=== PATIENT | male | born 1970 | race Caucasian/White ===

== ENCOUNTER 2021-07-26 07:07 | Day surgery (SDC) | payer BC ==
[2021-07-22 16:14] VITALS: BMI 21.9
[~2021-07-26 07:07] MED LIST: ACETAMINOPHEN TAB 500 MG TAB PO PRN; HEPARIN SODIUM,PORCINE/PF 5,000 UNIT/0.5 ML SYRINGE SQ PRN; Pre Op ABX Message 1 EACH MISC MISCELLANE ONE
[2021-07-26] MEDS ORDERED: ONDANSETRON 4 MG/2 ML VIAL IVP ONE (07:36)
[2021-07-26] MEDS ORDERED: DEXAMETHASONE SOD PHOSPHATE 4 MG/ML 1 ML VIAL IV ONE (07:36)
[2021-07-26] MEDS ORDERED: MIDAZOLAM 2 MG/2 ML VIAL IV PRN (07:36)
[2021-07-26] MEDS ORDERED: SCOPOLAMINE 1.5MG/72HR PATCH TRANSDERM ONE (07:36)
[2021-07-26] MEDS ORDERED: HYDROmorphone 0.5 MG/0.5 ML SYRINGE IVP PRN (07:36)
[2021-07-26 07:52] VITALS: TEMP 97.3
[2021-07-26] MEDS: LACTATED RINGERS 1,000 ML IV SCH ×2 (08:15→09:17)
[2021-07-26 08:16] LABS: Glucose,Whole Blood 105 mg/dL (75-99)
--- NOTE | 2021-07-26 08:55 | P.GSHP ---
History of Present Illness H&P Date: 07/26/21 Chief Complaint: Right hip lipoma Is a 49-year-old male who has developed a right hip lipoma. Patient presents today for excision. Past Medical History Past Medical History: GERD/Reflux, Hypertension, Sleep Apnea/CPAP/BIPAP Additional Past Medical History / Comment(s): "pre-diabetic"-watching diet., sleep apnea (no machine)., lipoma right hip. History of Any Multi-Drug Resistant Organisms: None Reported Past Surgical History: Hernia Repair, Tonsillectomy Additional Past Surgical History / Comment(s): tonsills (child) Past Anesthesia/Blood Transfusion Reactions: No Reported Reaction Past Psychological History: No Psychological Hx Reported Smoking Status: Never smoker Past Alcohol Use History: None Reported Past Drug Use History: None Reported - Past Family History Father Family Medical History: Cancer Additional Family Medical History / Comment(s): prostate cancer Sister(s) Family Medical History: Cancer Additional Family Medical History / Comment(s): breast cancer Medications and Allergies Home Medications Medication Instructions Recorded Confirmed Type Ascorbic Acid [Vitamin C] 1,000 mg PO DAILY 07/22/21 07/22/21 History Atorvastatin [Lipitor] 10 mg PO HS 07/22/21 07/22/21 History Benazepril/Hydrochlorothiazide 1 each PO DAILY 07/22/21 07/22/21 History [Benazepril-Hctz 20-25 mg Tab] Fish Oil/Dha/Epa [Fish Oil 1,200 1 each PO HS 07/22/21 07/22/21 History mg Fish Oil] Krill Oil 1,000 mg PO DAILY 07/22/21 07/22/21 History Magnesium 500 mg PO DAILY 07/22/21 07/22/21 History Multivitamins, Thera [Multivitamin 1 tab PO DAILY 07/22/21 07/22/21 History (formulary)] Potassium 99 mg PO DAILY 07/22/21 History amLODIPine [Norvasc] 5 mg PO DAILY 07/22/21 07/22/21 History gemfibroziL [Lopid] 600 mg PO DAILY 07/22/21 07/22/21 History Allergies Allergy/AdvReac Type Severity Reaction Status Date / Time Penicillins Allergy Unknown Unknown Verified 07/22/21 15:38 Surgical - Exam Vital Signs Temp Pulse Resp BP Pulse Ox 97.3 F L 86 20 143/94 98 07/26/21 07:51 07/26/21 07:51 07/26/21 07:51 07/26/21 07:51 07/26/21 07:51 - General well developed, well nourished, no distress - Eyes PERRL - ENT normal pinna - Neck no masses - Respiratory normal expansion - Cardiovascular Rhythm: regular - Abdomen Abdomen: soft, non tender - Integumentary 15 cm lipoma over right lateral hip Results - Labs Abnormal Lab Results - Last 24 Hours (Table) 07/26/21 Range/Units 08:04 POC Glucose (mg/dL) 105 H (75-99) mg/dL Assessment and Plan Assessment: Right hip lipoma. We'll perform wide local excision
[2021-07-26] MEDS ORDERED: MIDAZOLAM 2 MG/2 ML VIAL ONE (09:17)
[2021-07-26] MEDS ORDERED: PROPOFOL 10 MG/ML 20 ML VIAL IV ONE (09:17)
[2021-07-26] MEDS ORDERED: ePHEDrine SULFATE/0.9% NACL/PF 50 MG/5 ML SYRINGE IV ONE (09:17)
[2021-07-26] MEDS ORDERED: PHENYLEPHRINE-0.9% NACL SYG 1,000 MCG/10 ML SYRINGE ONE (09:17)
[2021-07-26] MEDS ORDERED: ceFAZolin 1,000 MG VIAL ONE (09:17)
[2021-07-26] MEDS ORDERED: LIDOCAINE 1% INJ 10MG/ML (20 ML MDV) ONE (09:17)
[2021-07-26] MEDS ORDERED: GLYCOPYRROLATE 0.2 MG/ML 2 ML VIAL ONE (09:17)
[2021-07-26] MEDS ORDERED: SODIUM CHLORIDE 0.9% 100 ML BAG ONE (09:17)
[2021-07-26] MEDS ORDERED: NALOXONE 0.4 MG/ML 1 ML VIAL ONE (09:17)
[2021-07-26] MEDS ORDERED: fentaNYL (PF) 50 MCG/ML 2 ML AMP ONE (09:17)
[2021-07-26] MEDS ORDERED: SODIUM CHLORIDE 0.9% 50 ML with ceFAZolin 1,000 MG IV ONE ×2 (09:41)
[2021-07-26] MEDS ORDERED: LIDOCAINE 1%-EPI 1:100,000 20 ML VIAL SQ ONE (09:46)
--- NOTE | 2021-07-26 09:58 | P.OP ---
Date of Procedure: 07/26/21 Preoperative Diagnosis: Right hip lipoma Postoperative Diagnosis: Right hip lipoma Procedure(s) Performed: Excision of right hip lipoma Anesthesia: [facility] Surgeon: Jermaine Atkinson Estimated Blood Loss (ml): 5 Condition: stable Disposition: PACU Description of Procedure: The patient's placed the operative table in the supine position. He received general endotracheal tube anesthesia. He was then positioned with his right hip up. Lipoma measured approximately 10 x 15 70s. A skin incision was made over the lipoma. Then using blunt and sharp dissection with cautery the lipoma was dissected free sent to pathology. The skin was then closed with interrupted 3-0 Monocryl suture. Dermabond was applied. Patient top she will was sent to recovery room in stable condition.
[2021-07-26 10:25] VITALS: RESP 16
[2021-07-26 10:29] LABS: Glucose,Whole Blood 118 mg/dL (75-99)
[2021-07-26 11:11] VITALS: BP 117/74; PULSE 100
== END 2021-07-26 11:15 | disposition home or self-care (01) ==
LOC: OR 07:07
PROVIDERS: ATTEND Surgery
DX: D17.79 Benign lipomatous neoplasm of other sites (principal); G47.30 Sleep apnea, unspecified; I10 Essential (primary) hypertension; K21.9 Gastro-esophageal reflux disease without esophagitis; Z79.899 Other long term (current) drug therapy; Z80.3 Family history of malignant neoplasm of breast; Z88.0 Allergy status to penicillin; E78.5 Hyperlipidemia, unspecified; G47.33 Obstructive sleep apnea (adult) (pediatric); Z99.2 Dependence on renal dialysis
CPT/HCPCS: 11406; 88304; J2250; J1100; J2310; J2405; J0690; J2001; J3010; J2370; J2704